=== PATIENT | male | born 1960 | race Hispanic/Latino ===

== ENCOUNTER 2018-05-12 09:45 | Inpatient (IN) | payer SELFPAY ==
[2018-05-12] MEDS ORDERED: LEVALBUTEROL 1.25 MG/3 ML NEB ONE (10:26)
[2018-05-12 10:38] LABS: Absolute Lymphocytes (CBC) 1.1 K/uL (0.7-4.9); Absolute Monocytes 0.3 K/uL (0.1-1.3); Absolute Neutrophil 6.1 K/uL (1.8-8.0); Basophils % 0.5 % (0-1.3); Eosinophils % 0.8 % (0-4.4); Hematocrit 42.6 % (39.6-49.0); Lymphocytes % 14.5 % (15.3-44.8); MPV 10.2 fL (7.6-11.3); Monocytes % 3.9 % (3.3-12.3); RBC Red Blood Cell Count 4.73 M/uL (4.33-5.43)
[2018-05-12 10:41] LABS: Protime INR 1.08
[2018-05-12] MEDS ORDERED: NA CHLORIDE 0.9% 1,000 ML ONE (11:02)
[2018-05-12] MEDS ORDERED: ONDANSETRON 4 MG/2 ML VIAL ONE (11:02)
[2018-05-12 11:04] LABS: Albumin 3.5 g/dL (3.4-5.0); Bilirubin Direct 0.1 mg/dL (0-0.2); Bilirubin Total 0.5 mg/dL (0.2-1.0); Magnesium 2.3 mg/dL (1.8-2.4); Potassium 5.3 mmol/L (3.5-5.1); Protein, Total 7.8 g/dL (6.4-8.2); Troponin (Emerg Dept Use Only) 0.3 ng/mL (0.0-0.045)
[2018-05-12] MEDS ORDERED: ASPIRIN 81 MG CHEWABLE TABLET ONE (12:08)
[2018-05-12] MEDS ORDERED: ENOXAPARIN 100 MG/ML SYR SQ ONE (12:09)
--- NOTE | 2018-05-12 12:17 | ER ---
Nurse's Notes [facility] Name: Jin Piña Age: 58 yrs Sex: Male : 1960 Arrival Date: 05/12/2018 Time: 09:46 Bed 7 Private MD: Diagnosis: Acute bronchitis;Acute kidney failure Presentation: 05/12 09:49 Presenting complaint: Patient states: cough and congestion x 2-3 days. No fever. Today ss patient c/o chest pain that began at 0700 today. Transition of care: patient was not received from another setting of care. Onset of symptoms was May 10, 2018. Risk Assessment: Do you want to hurt yourself or someone else? Patient reports no desire to harm self or others. Initial Sepsis Screen: Does the patient meet any 2 criteria? RR > 20 per min. HR > 90 bpm. Does the patient have a suspected source of infection? Yes: Productive cough/pneumonia. Care prior to arrival: None. 09:49 Method Of Arrival: Ambulatory ss 09:49 Acuity: SHERMAN 2 ss Historical: - Allergies: 09:53 No Known Allergies; ss - PMHx: 09:53 Hypertension; Diabetes - NIDDM; High Cholesterol; ss - PSHx: 09:53 None; ss - Immunization history:: Adult Immunizations up to date. - Social history:: Smoking status: Patient/guardian denies using tobacco. - Ebola Screening: : Patient denies exposure to infectious person Patient denies travel to an Ebola-affected area in the 21 days before illness onset. Screenin:30 Abuse screen: Denies threats or abuse. Denies injuries from another. Nutritional aj1 screening: No deficits noted. Tuberculosis screening: No symptoms or risk factors identified. 14:24 Fall Risk No fall in past 12 months (0 pts). No secondary diagnosis (0 pts). IV access aj1 (20 points). Ambulatory Aid- None/Bed Rest/Nurse Assist (0 pts). Gait- Normal/Bed Rest/Wheelchair (0 pts) Mental Status- Oriented to own ability (0 pts). Total Powell Fall Scale indicates No Risk (0-24 pts). Assessment: 10:30 General: Appears uncomfortable, Behavior is cooperative, anxious. Pain: Complains of aj1 pain in anterior aspect of right upper chest Pain does not radiate. Pain currently is 7 out of 10 on a pain scale. Quality of pain is described as sharp, Pain began this morning Aggravated by deep breathing. Neuro: Level of Consciousness is awake, alert, obeys commands. Cardiovascular: Reports chest pain, shortness of breath, Heart tones S1 S2 present Rhythm is sinus tachycardia. Respiratory: Reports shortness of breath cough that is productive, Airway is patent Respiratory effort is even, labored, Respiratory pattern is regular, symmetrical, tachypnea Breath sounds with rhonchi in left posterior upper lobe, right posterior upper lobe, left posterior lower lobe, right posterior middle lobe and right posterior lower lobe. GI: No signs and/or symptoms were reported involving the gastrointestinal system. : No signs and/or symptoms were reported regarding the genitourinary system. EENT: No signs and/or symptoms were reported regarding the EENT system. Derm: No signs and/or symptoms reported regarding the dermatologic system. Skin is pink, warm \T\ dry. normal. Musculoskeletal: No signs and/or symptoms reported regarding the musculoskeletal system. Circulation, motion, and sensation intact. 11:14 Reassessment: Patient appears in no apparent distress at this time. No changes from aj1 previously documented assessment. Patient and/or family updated on plan of care and expected duration. Pain level reassessed. Patient is alert, oriented x 3, equal unlabored respirations, skin warm/dry/pink. 11:24 Reassessment: critical lab- DD [id number], provider notified. em 12:15 Reassessment: Patient and/or family updated on plan of care and expected duration. Pain aj1 level reassessed. General: Appears in no apparent distress. uncomfortable, Behavior is calm, cooperative, appropriate for age. Neuro: Level of Consciousness is awake, alert, obeys commands. Cardiovascular: Heart tones S1 S2 present Patient's skin is warm and dry. Rhythm is sinus rhythm. Respiratory: Airway is patent Respiratory effort is even, unlabored, Respiratory pattern is regular, symmetrical. GI: No signs and/or symptoms were reported involving the gastrointestinal system. Derm: No signs and/or symptoms reported regarding the dermatologic system. Skin is pink, warm \T\ dry. normal. Musculoskeletal: No signs and/or symptoms reported regarding the musculoskeletal system. Circulation, motion, and sensation intact. 13:15 Reassessment: Patient appears in no apparent distress at this time. No changes from aj1 previously documented assessment. Patient and/or family updated on plan of care and expected duration. Pain level reassessed. Patient is alert, oriented x 3, equal unlabored respirations, skin warm/dry/pink. 14:22 Reassessment: Patient appears in no apparent distress at this time. No changes from aj1 previously documented assessment. Patient and/or family updated on plan of care and expected duration. Pain level reassessed. Patient is alert, oriented x 3, equal unlabored respirations, skin warm/dry/pink. 15:21 Reassessment: Patient and/or family updated on plan of care and expected duration. Pain aj1 level reassessed. General: Appears in no apparent distress. comfortable, Behavior is calm, cooperative, appropriate for age. Neuro: Level of Consciousness is awake, alert, obeys commands. Cardiovascular: Patient's skin is warm and dry. Rhythm is sinus tachycardia. Respiratory: Airway is patent Respiratory effort is even, unlabored, Respiratory pattern is regular, symmetrical. Derm: Skin is pink, warm \T\ dry. normal. Musculoskeletal: Circulation, motion, and sensation intact. Vital Signs: 09:49 BP 142 / 100; Pulse 117; Resp 30; Temp 98.6(O); Pulse Ox 92% on R/A; Pain 7/10; ss 09:53 Height 5 ft. 5 in. (165.10 cm); Pain 7/10; ss 11:14 BP 115 / 79; Pulse 99; Resp 13; Pulse Ox 99% on 2 lpm NC; aj1 11:49 Weight 90.72 kg (R); aj1 12:45 BP 103 / 74; Pulse 95; Resp 18; Pulse Ox 98% ; aj1 13:45 BP 118 / 89; Pulse 98; Resp 18; Pulse Ox 95% on 2 lpm NC; aj1 14:24 BP 129 / 85; Pulse 95; Resp 20; Pulse Ox 96% on R/A; aj1 15:22 BP 124 / 84; Pulse 97; Resp 24; Pulse Ox 97% on R/A; aj1 11:49 Body Mass Index 33.28 (90.72 kg, 165.10 cm) aj1 ED Course: 09:46 Patient arrived in ED. as 09:53 Triage completed. ss 09:53 Arm band placed on right wrist. ss 10:00 EKG done, by ED staff, reviewed by Romero Fermin MD. em1 10:05 Kit Keane PA is PHCP. jmm 10:05 Romero Fermin MD is Attending Physician. jmm 10:30 Patient has correct armband on for positive identification. panel monitor on. Pulse aj1 ox on. NIBP on. 10:30 No provider procedures requiring assistance completed. Inserted saline lock: 18 gauge aj1 in right antecubital area, using aseptic technique. Blood collected. Patient maintains SpO2 saturation greater than 95% on room air. 10:33 Christina Frankel, KENDRICK is Primary Nurse. aj1 12:14 Breezy Anaya MD is Hospitalizing Provider. jmm 12:32 Chest Single View XRAY In Process Unspecified. EDMS 14:07 EKG done, by ED staff, reviewed by Kit MARTINEZ. em1 15:23 Patient admitted, IV remains in place. aj1 15:48 Report given to KENDRICK Hendrix on 4th floor. aj1 Administered Medications: 10:34 Drug: Xopenex (3) 1.25 mg Route: Inhalation; aj1 12:19 Follow up: Response: No adverse reaction aj1 10:58 Drug: NS 0.9% 1000 ml Route: IV; Rate: 1 bolus; Site: right antecubital; aj1 12:19 Follow up: IV Status: Completed infusion; IV Intake: 1000ml aj1 10:58 Drug: Zofran 4 mg Route: IVP; Site: right antecubital; aj1 12:19 Follow up: Response: No adverse reaction aj1 12:18 Drug: Aspirin Chewable Tablet 324 mg Route: PO; aj1 13:57 Follow up: Response: No adverse reaction aj1 12:18 Drug: Lovenox 1 mg/kg Route: Sub-Q; Site: left lower abdomen; aj1 13:57 Follow up: Response: No adverse reaction aj1 15:19 Drug: Kayexalate 45 grams Route: PO; aj1 16:49 Follow up: Response: No adverse reaction aj1 Intake: 12:19 IV: 1000ml; Total: 1000ml. aj1 Outcome: 12:15 Decision to Hospitalize by Provider. jmm 16:43 Admitted to Tele accompanied by tech, via wheelchair, with oxygen, with chart. aj1 16:43 Condition: stable 16:43 Discharge instructions given to family, Instructed on the need for admit, Demonstrated understanding of instructions. 16:45 Patient left the ED. aj1 Signatures: Dispatcher [employer] Christina Trujillo RN RN aj1 Kit Keane PA PA jmm Munoz, Edgar, CRAPS MANAGER CRAPS MANAGER daniel Ordonez, Uvaldo Conroy em1 Abbey Jamil RN RN ss Corrections: (The following items were deleted from the chart) 10:02 09:49 Initial Sepsis Screen: Does the patient meet any 2 criteria? No. Patient's ss initial sepsis screen is negative. Does the patient have a suspected source of infection? No. Patient's initial sepsis screen is negative. ss 10:02 09:49 Acuity: SHERMAN 3 ss ss
--- NOTE | 2018-05-12 12:17 | EDPHYS ---
Physician Documentation [facility] Name: Jin Piña Age: 58 yrs Sex: Male : 1960 Arrival Date: 05/12/2018 Time: 09:46 Bed 7 Private MD: ED Physician Romero Fermin HPI: 05/12 10:23 This 58 yrs old Male presents to ER via Ambulatory with complaints of Chest Pain, jmm Shortness of breath. 10:23 The patient or guardian reports cough. Onset: The symptoms/episode began/occurred jmm gradually, 1 month(s) ago. This is a 58 year old male with a history of DM, HTN, HLP that presents to the ED with cough, shortness of breath and intermittent right sided chest pain for approx 1 month. Patient states symptoms had decreased but after drinking alcohol last night the patient awoke this morning short of breath, with a productive cough, and worsening right sided chest pain. . Historical: - Allergies: 09:53 No Known Allergies; ss - PMHx: 09:53 Hypertension; Diabetes - NIDDM; High Cholesterol; ss - PSHx: 09:53 None; ss - Immunization history:: Adult Immunizations up to date. - Social history:: Smoking status: Patient/guardian denies using tobacco. - Ebola Screening: : Patient denies exposure to infectious person Patient denies travel to an Ebola-affected area in the 21 days before illness onset. ROS: 10:23 Constitutional: Positive for body aches. jmm 10:23 Cardiovascular: Positive for chest pain, of the anterior aspect of right upper chest. 10:23 Respiratory: Positive for cough, shortness of breath. 10:23 Abdomen/GI: Positive for nausea and vomiting. 10:23 All other systems are negative. Exam: 10:23 Head/Face: atraumatic. Eyes: EOMI, no conjunctival erythema appreciated ENT: Moist jmm Mucus Membranes Neck: Trachea midline, Supple Chest/axilla: Normal chest wall appearance and motion. Cardiovascular: Regular rate and rhythm. No edema appreciated 10:23 Abdomen/GI: Non distended, soft Skin: General appearance color normal MS/ Extremity: Moves all extremities, no obvious deformities appreciated, no edema noted to the lower extremities Neuro: Awake and alert, normal gait Psych: Behavior is normal, Mood is normal, Patient is cooperative and pleasant 10:23 Constitutional: The patient appears in no acute distress, alert, awake. 10:23 Respiratory: mild respiratory distress is noted, Respirations: normal, Breath sounds: wheezing: that is moderate, is heard diffusely. Vital Signs: 09:49 BP 142 / 100; Pulse 117; Resp 30; Temp 98.6(O); Pulse Ox 92% on R/A; Pain 7/10; ss 09:53 Height 5 ft. 5 in. (165.10 cm); Pain 7/10; ss 11:14 BP 115 / 79; Pulse 99; Resp 13; Pulse Ox 99% on 2 lpm NC; aj1 11:49 Weight 90.72 kg (R); aj1 12:45 BP 103 / 74; Pulse 95; Resp 18; Pulse Ox 98% ; aj1 13:45 BP 118 / 89; Pulse 98; Resp 18; Pulse Ox 95% on 2 lpm NC; aj1 14:24 BP 129 / 85; Pulse 95; Resp 20; Pulse Ox 96% on R/A; aj1 15:22 BP 124 / 84; Pulse 97; Resp 24; Pulse Ox 97% on R/A; aj1 11:49 Body Mass Index 33.28 (90.72 kg, 165.10 cm) aj1 MDM: 10:07 Patient medically screened. [facility] 12:13 Data reviewed: vital signs, nurses notes. [facility] 12:14 Counseling: I had a detailed discussion with the patient and/or guardian regarding: the [facility] historical points, exam findings, and any diagnostic results supporting the discharge/admit diagnosis, lab results, radiology results, the need for further work-up and treatment in the hospital. ED course: I discussed the patient with Dr. Anaya whom accepted the patient. . 14:26 ED course: I discussed the patient with Dr. An whom will consult on admission. . [facility] 05/12 10:16 Order name: Basic Metabolic Panel; Complete Time: 11:33 [facility] 05/12 10:16 Order name: CBC with Diff; Complete Time: 10:42 [facility] 05/12 10:16 Order name: LFT's; Complete Time: 11:33 [facility] 05/12 10:16 Order name: Magnesium; Complete Time: 11:33 [facility] 05/12 10:16 Order name: NT PRO-BNP; Complete Time: 11:33 [facility] 05/12 10:16 Order name: PT-INR; Complete Time: 11:01 [facility] 05/12 10:16 Order name: Troponin (emerg Dept Use Only); Complete Time: 11:33 [facility] 05/12 10:17 Order name: Lactate; Complete Time: 11:06 [facility] 05/12 10:17 Order name: Procalcitonin; Complete Time: 11:33 [facility] 05/12 10:17 Order name: Blood Culture Adult (2) [facility] 05/12 11:08 Order name: D-Dimer; Complete Time: 11:33 [facility] 05/12 11:45 Order name: Chest Single View XRAY; Complete Time: 14:17 [facility] 05/12 11:58 Order name: BMP; Complete Time: 13:35 [facility] 05/12 10:02 Order name: EKG; Complete Time: 10:03 05/12 10:02 Order name: EKG - Nurse/Tech; Complete Time: 10:02 05/12 10:16 Order name: Cardiac monitoring; Complete Time: 10:35 [facility] 05/12 10:16 Order name: IV Saline Lock; Complete Time: 10:35 [facility] 05/12 10:16 Order name: Labs collected and sent; Complete Time: 10:35 [facility] 05/12 10:16 Order name: O2 Per Protocol; Complete Time: 10:35 [facility] 05/12 10:16 Order name: O2 Sat Monitoring; Complete Time: 10:35 [facility] 05/12 13:11 Order name: EKG - Nurse/Tech; Complete Time: 15:19 jmm Administered Medications: 10:34 Drug: Xopenex (3) 1.25 mg Route: Inhalation; aj1 12:19 Follow up: Response: No adverse reaction aj1 10:58 Drug: NS 0.9% 1000 ml Route: IV; Rate: 1 bolus; Site: right antecubital; aj1 12:19 Follow up: IV Status: Completed infusion; IV Intake: 1000ml aj1 10:58 Drug: Zofran 4 mg Route: IVP; Site: right antecubital; aj1 12:19 Follow up: Response: No adverse reaction aj1 12:18 Drug: Aspirin Chewable Tablet 324 mg Route: PO; aj1 13:57 Follow up: Response: No adverse reaction aj1 12:18 Drug: Lovenox 1 mg/kg Route: Sub-Q; Site: left lower abdomen; aj1 13:57 Follow up: Response: No adverse reaction aj1 15:19 Drug: Kayexalate 45 grams Route: PO; aj1 16:49 Follow up: Response: No adverse reaction aj1 Disposition: 17:32 Co-signature as Attending Physician, Romero Fermin MD. Disposition: 05/12/18 12:15 Hospitalization ordered by Breezy Anaya for Observation. Preliminary diagnosis are Acute bronchitis, Acute kidney failure. - Bed requested for Telemetry/MedSurg (observation). - Status is Observation. aj1 - Condition is Stable. - Problem is new. - Symptoms have improved. UTI on Admission? No Signatures: Dispatcher [employer] [facility] Christina Frankel RN RN aj1 Kit Keane PA PA [facility] Abbey Jamil RN RN Hazel Johnson RN RN df Starr, Gregory, MD MD Corrections: (The following items were deleted from the chart) 11:38 11:33 Chest For PE Angio+CT.RAD.BRZ ordered. [facility] 13:48 12:15 Hospitalization Ordered by Breezy Anaya MD for Observation. Preliminary diagnosis df is Acute bronchitis; Acute kidney failure. Bed requested for Telemetry/MedSurg (observation). Status is Observation. Condition is Stable. Problem is new. Symptoms have improved. UTI on Admission? No. [facility] 16:45 13:48 05/12/2018 12:15 Hospitalization Ordered by Breezy Anaya MD for Observation. aj1 Preliminary diagnosis is Acute bronchitis; Acute kidney failure. Bed requested for Telemetry/MedSurg (observation). Status is Observation. Condition is Stable. Problem is new. Symptoms have improved. UTI on Admission? No. df
[2018-05-12 13:11] LABS: Potassium 5.7 mmol/L (3.5-5.1)
[2018-05-12] MEDS ORDERED: SOD POLYSTYREN SUL 15 GM/60 ML UCUP PO ONE ×2 (14:00→20:08)
--- NOTE | 2018-05-12 14:13 | EKG ---
Test Date: 2018-05-12 Test Time: 09:58:23 Airplane Patrol Pilot: IZZY MEASUREMENT RESULTS: Intervals: Rate: 110 SC: 140 QRSD: 112 QT: 354 QTc: 479 [place]: P: 74 SC: 140 QRS: -79 T: 162 INTERPRETIVE STATEMENTS: Sinus tachycardia Possible Left atrial enlargement Left axis deviation Right bundle branch block Abnormal ECG No previous ECG available for comparison Electronically Signed On 05-12-18 14:12:27 QUALITY REVIEW SPECIALIST by Lio Giron
--- NOTE | 2018-05-12 14:13 | RAD REPORT ---
EXAM DESCRIPTION: RAD - Chest Single View - 05/12/2018 12:32 pm CLINICAL HISTORY: Cough and congestion COMPARISON: None. TECHNIQUE: AP portable chest image was obtained 1203 hours . FINDINGS: Lung volumes are normal. No focal consolidation or mass lesion. Interstitial markings are diffusely prominent throughout the lung whitman. Mild cardiomegaly is present with vascular engorgemen t. Trachea is midline. No measurable pleural effusion and no pneumothorax. No acute bony abnormality seen. No acute aortic findings suspected. IMPRESSION: Diffusely prominent interstitial markings with baseline for the patient unknown. Mild cardiac enlargement and vascular engorgement. Patient likely has some significant degree of underlying fibrotic lung change. CHF, volume overload o r pulmonary edema from infiltrate are all possible.
[2018-05-12] MEDS ORDERED: IPRATROPIUM BROM 0.5MG/2.5ML NEB PRN (16:59)
[2018-05-12] MEDS ORDERED: MORPHINE 4 MG/ML SYR IV PRN (16:59)
[2018-05-12] MEDS: INSULIN -REGULAR HUMAN 50 UNIT/0.5 ML ML SQ SCH ×2 (16:59→21:04)
[2018-05-12] MEDS ORDERED: ACETAMINOPHEN 500 MG TAB PO PRN (16:59)
[2018-05-12] MEDS ORDERED: ALBUTEROL 2.5 MG/3 ML NEB SOL NEB PRN (16:59)
[2018-05-12] MEDS ORDERED: NITROGLYCERIN 0.4 MG/TAB SL PRN (16:59)
[2018-05-12] MEDS ORDERED: INSULIN -REGULAR HUMAN 50 UNIT/0.5 ML ML IV ONE (18:15)
[2018-05-12] MEDS ORDERED: ALBUTEROL 2.5 MG/3 ML NEB SOL NEB ONE (19:00)
[2018-05-12] MEDS ORDERED: D50W 25 GM/50 ML SYRINGE IV ONE (19:00)
[2018-05-12] MEDS ORDERED: NA CHLORIDE 0.9% 1,000 ML IV SCH (19:00)
[2018-05-12 19:29] LABS: Thyroid Stimulating Hormone 2.36 uIU/mL (0.360-3.740); Uric Acid 6.9 mg/dL (3.5-7.2)
[2018-05-12] MEDS ORDERED: FUROSEMIDE 40 MG/4 ML VIAL IV ONE (20:20)
[2018-05-12 20:38] VITALS: BMI 33.3
[2018-05-12] MEDS: ATORVASTATIN 40 MG TAB PO SCH (21:05)
[2018-05-12] MEDS: METOPROLOL TAR 25 MG TAB PO SCH (21:06)
--- NOTE | 2018-05-12 22:41 | EKG ---
Test Date: 2018-05-12 Test Time: 14:00:39 Barrel Waterer: IZZY MEASUREMENT RESULTS: Intervals: Rate: 97 NH: 158 QRSD: 114 QT: 388 QTc: 492 [place]: P: 5 NH: 158 QRS: -57 T: 70 INTERPRETIVE STATEMENTS: Normal sinus rhythm Left axis deviation Right bundle branch block Abnormal ECG Compared to ECG 05/12/2018 09:58:23 Sinus tachycardia no longer present Electronically Signed On 05-12-18 22:40:47 CARDIAC CATH TECHNOLOGIST by Lio Giron
[2018-05-13] MEDS: ENOXAPARIN 100 MG/ML SYR SQ SCH ×3 (00:57→23:31)
--- NOTE | 2018-05-13 02:14 | HP ---
Date of Admission: 05/12/2018 Chief Complaint: Chest pain. Consultants: Dr. Giron with Cardiology. History Of Present Illness: The patient is a 58-year-old male with past medical history of hypertens ion, hyperlipidemia, diabetes mellitus [id number], who was in his usual state of health un til day prior to admission when the patient went to a restaurant, had several glasses of whiskey, he says about 5 and the next morning woke up with chest pain. The patient also reported some associated shortness of breath and nausea and vomiting x1. Denies any diaphoresis or palpitations. The patien t denies being a daily drinker. States that his pain has improved since being in the ER. The pain w as retrosternal, nonradiating, sharp. The patient's symptoms were constant, mild, progressive. The patient came into the ER for further evaluation. Upon arrival, his workup revealed a troponin of 0.3 . BNP was 6500. His kidney function was elevated at 2.48. Potassium was high at 5.3. White count was normal. Chest x-ray was not clear. It showed diffusely prominent markings with baseline unknown, mild cardiac enlargement, vascular engorgement, some significant degree of underlying fibrotic lung change. CHF, volume overload or pulmonary edema from the infiltrates are all possible. The patient' s EKGs did not show any acute ST elevation. The patient was hypoxic and was started on 2 L nasal can nula. His septic workup was negative. Procalcitonin and lactate were normal. The patient was then referred for admission. When seen in the ER the patient was awake, alert, oriented x3, in some mild distress. Past Medical History: Hypertension, hyperlipidemia, diabetes mellitus type 2, [id number]. Past Surgical History: None. Allergies: NO KNOWN DRUG ALLERGIES. Medications: Lisinopril/HCTZ, glipizide 10 mg, metformin 850 mg, pravastatin unknown dose, amlodipin e 10 mg daily. Social History: The patient denies smoking. Does report drinking alcohol occasionally. Does drink heavily when he goes to a restaurant or a bar. The patient does work at a plant. Independent in his activities of daily living. Family History: Mother has diabetes. Review of Systems: An 11-point system review negative except as per HPI. Physical Examination: Vital Signs: Temperature 98.6, blood pressure 142/100, pulse 117, respirations 30, O2 of 92% on room air. General: Awake, alert, oriented x3. Some mild distress. Ill-appearing male, obese, BMI 33. HEENT: Normocephalic, atraumatic. PERRLA. EOMI. Dry mucous membranes. Oropharynx is clear. Conjunctiv ae anicteric. Poor dentition. Neck: Supple. No JVD. Trachea midline. CV: S1, S2. Regular rate and rhythm. Peripheral pulses present bilaterally. Respiratory: Moving air well at the apices. Otherwise, the patient does have diffuse crackles and t he patient is tachypneic. No use of accessory muscles. Gastrointestinal: Abdomen is soft, nontender, nondistended. Positive bowel sounds. Extremities: No clubbing, cyanosis, or edema. No calf tenderness. Neuro: Cranial nerves 2 through 12 intact grossly. No focal neurological deficit. Speech is normal . Strength is 5/5 bilateral upper and lower extremities. Sensation intact to light touch Skin: No rashes. Normal skin turgor. Laboratory Data: Sodium 137, potassium 5.3, recheck is 5.7, chloride 106, CO2 of 24, BUN 37, creatin ine 2.48, glucose 271, lactate 1.5, calcium 8.7, magnesium 2.3. Troponin 0.3. BNP 6500, albumin 3.5 . Procalcitonin less than 0.05. Lactate 1.5. INR 1.08. D-dimer 817. WBC 7.5, H and H 14.2 and 42 .6, platelets 201, neutrophils 80%. EKG shows sinus tachycardia, rate 110, left atrial enlargement. Left axis deviation, right bundle-branch block. Chest x-ray shows diffusely prominent interstitial markings with baseline for the patient unknown. Mild cardiac enlargement and vascular engorgement. The patient likely has some significant degree of underlying fibrotic lung change. CHF, volume overl oad or pulmonary edema from infiltrate are all possible. Assessment And Plan: A 58-year-old male with: 1.Acute kidney injury, likely prerenal azotemia. We will start on IV fluids with gentle hydration d ue to congestive heart failure and volume overload on x-ray. 2.Chest pain, rule out acute coronary syndrome. The patient does have elevated troponin level. No changes on EKG concerning for ST-elevation. Cardiology has been consulted. The patient received 1 mg /kg of Lovenox. We will continue every 24 hours. The patient's chest pain has improved. We will co ntinue serial cardiac enzymes and EKG. Follow on chest pain guidelines with beta-romario, hold AISSATOU i nhibitor due to acute kidney injury, statin and aspirin. 3.Hyperkalemia. We will give Kayexalate and monitor potassium level, likely due to kidney injury. Nephrology has been consulted by ER. 4.Volume overload. Likely has alcoholic cardiomyopathy and heart failure. BNP is elevated at 6500. Chest x-ray shows volume overload. The patient will need echocardiogram. 5.Essential hypertension, not well controlled. We will resume home medications as appropriate. 6.Mixed hyperlipidemia. We will check lipid panel. Continue statin. 7.Diabetes mellitus type 2 ceu-iujydtb-skfarrrsh with hyperglycemia, uncontrolled. We will check he moglobin A1c, start on sliding scale insulin. Monitor blood glucose levels. 8.Obesity, BMI of 33. 9.Gastrointestinal and deep venous thrombosis prophylaxis with PPI and Lovenox renally dosed. Plan: Admit the patient to Med-Surg, [facility] as observation. /RANJEET Voice ID: [id number]
[2018-05-13 06:45] LABS: Absolute Lymphocytes (CBC) 1.1 K/uL (0.7-4.9); Absolute Monocytes 0.5 K/uL (0.1-1.3); Absolute Neutrophil 5.9 K/uL (1.8-8.0); Basophils % 0.2 % (0-1.3); Eosinophils % 0.3 % (0-4.4); Lymphocytes % 14.1 % (15.3-44.8); MPV 10.1 fL (7.6-11.3); Monocytes % 6.3 % (3.3-12.3); RBC Red Blood Cell Count 4.23 M/uL (4.33-5.43)
[2018-05-13 07:13] LABS: Potassium 4.2 mmol/L (3.5-5.1)
[2018-05-13] MEDS ORDERED: PNEUMOCOCCAL VACCINE 0.5 ML IMVAC ONE (08:00)
[2018-05-13] MEDS: ASPIRIN EC 81 MG TAB PO SCH (08:32)
[2018-05-13] MEDS: INSULIN -REGULAR HUMAN 50 UNIT/0.5 ML ML SQ SCH ×4 (08:32→21:36)
[2018-05-13] MEDS: METOPROLOL TAR 25 MG TAB PO SCH ×2 (08:32→21:35)
[2018-05-13] MEDS ORDERED: ENOXAPARIN 40 MG/0.4 ML SQ SCH ×2 (09:00)
[2018-05-13] MEDS ORDERED: RISPERIDONE 0.25 MG TABLET PO ONE (10:20)
--- NOTE | 2018-05-13 12:35 | RAD REPORT ---
EXAM DESCRIPTION: US - Renal Ultrasound-Complete - 05/12/2018 11:01 pm CLINICAL HISTORY: [place] COMPARISON: No comparisons FINDINGS: Both kidneys are normal in size, shape and echotexture. The right kidney measures 9.8 x 4.8 x 4.6 cm. No hydronephrosis, focal mass or perinephric fluid. The left kidney measures 9.5 x 5.5 x 4.4 cm. No hydronephrosis, focal mass or perinephric fluid. The urinary bladder is incompletely distended without gross abnormality seen. IMPRESSION: Unremarkable renal sonogram.
--- NOTE | 2018-05-13 16:29 | EKG ---
Test Date: 2018-05-12 Test Time: 19:53:40 Trail Construction Worker: RT MEASUREMENT RESULTS: Intervals: Rate: 141 [place]: QRSD: 112 QT: 358 QTc: 548 [place]: P: NJ: QRS: -21 T: 23 INTERPRETIVE STATEMENTS: Atrial fibrillation with rapid ventricular response Right bundle branch block Abnormal ECG Compared to ECG 05/12/2018 14:00:39 Sinus rhythm no longer present Left-axis deviation no longer present Electronically Signed On 05-13-18 16:28:50 STILL OPERATOR BATCH OR CONTINUOUS by Lio Giron
--- NOTE | 2018-05-13 16:53 | CON ---
CARDIOLOGY CONSULTATION History Of Present Illness: Mr. Keith Piña was having chest pain. It seems to be described as something with both typical and atypical features, hard to really pin down exactly what he means. Apparently, he has had the symptoms in the past. There is no previous history of testing done on his heart or stents or previous heart attacks or strokes. Medications: As an outpatient, he takes amlodipine, lisinopril, hydrochlorothiazide, glipizide, and metformin. Social History: He uses no tobacco. Allergies: HE HAS NO ALLERGIES. Physical Examination: General: He is 5 feet 5 inches, 208 pounds, obese, alert, oriented, not in distress. Lungs: Clear. Cardiac: Normal. Abdomen: Soft. Extremities: Normal. Laboratory Data: His troponins are all abnormal, but he has had 3 separate troponins drawn over about a 24-hour period. They are all virtually the same to typical rise and fall one sees with an acute coronary syndrome. His N- terminal ProBNP is elevated over 6000. His electrocardiogram shows right bundle -branch block, left axis, otherwise it is normal. His initial ECG showed afib with RVR., but he is in sinus rhythm now. His creatinine is almost 2.5. Impression And Plan: My impression is that Mr. Keith Piña has heart symptoms. I believe it is mostly from atrial fibrillation, but I think an echo and nuclear pharmacologic stress test would help us decide what kind of course to take. We probably want to pursue strictly medical therapy for him unless his nuclear stress test shows a large perfusion defect. ALTA/RANJEET Voice ID: [id number] Report ID: [id number] LAURIE
[2018-05-13 19:08] LABS: Urine Appearance CLEAR; Urine Bilirubin NEGATIVE (NEG); Urine Blood NEGATIVE (NEG); Urine Color YELLOW; Urine Glucose 2+ (NEG); Urine Protein 2+ (NEG)
[2018-05-13 19:12] LABS: Urine Protein/Creatinine Ratio 1.34 ratio (<0.15)
[2018-05-13 19:25] LABS: Urine Bacteria NONE SEEN /HPF (NONE SEEN); Urine RBC <5 /HPF (NONE SEEN)
[2018-05-13 19:26] LABS: Urine Culture Reflex Order NOT NEEDED
--- NOTE | 2018-05-13 21:00 | PN ---
Date of Progress Note: 05/13/2018 Subjective: The patient is seen and examined. Chart reviewed and case discussed with Dr. Giron, Ca rdiology. The patient denies any further chest pain. He states his symptoms have improved. Case is discussed with Dr. Fajardo. The patient overall does not have any significant complaints. Medications: List reviewed. Physical Examination: Vital Signs: Temperature 97.4, heart rate 86, blood pressure 120/76, respirations 16, O2 96% on room air. General: Awake, alert, oriented x3. No acute distress. Obese male. CV: S1, S2. Regular rate and rhythm. Peripheral pulses present. Respiratory: Moving air well bilaterally. No wheezing. Gastrointestinal: Abdomen is soft, nontender, nondistended. Positive bowel sounds. Extremities: No clubbing, cyanosis, or edema. Neurologic: Nonfocal. Laboratory Data: Sodium 142, potassium 4.2, chloride 108, CO2 25, BUN 34, creatinine 2.37, glucose 2 08, calcium 8.3. Troponin 0.34, 0.38. Triglycerides 195, cholesterol 135, LDL 62. HDL 34, PTH 109, TSH 2.36. WBC 7.5, H and H 13.1, 38, platelets 180. Blood cultures, no growth to date. EKG shows normal sinus rhythm, left axis deviation, right bundle-branch block, rate of 97. Assessment And Plan: A 58-year-old male with: 1.Axk-VS-hmlxtoyol myocardial infarction. We will continue chest pain guidelines, therapeutic Loven ox. Appreciate Dr. Giron' input. Stress test scheduled for a.m. 2.Acute kidney injury. The patient did not respond to IV fluids. Case discussed with Dr. Fajardo. The patient does report that he was referred to flight operations dispatch clerk by PCP. The patient likely has chroni city to this kidney dysfunction, stage 3. We will continue to monitor. Avoid nephrotoxins. 3.Hyperkalemia, corrected secondary to kidney injury. 4.Volume overload. Follow up on echocardiogram. 5.Essential hypertension, poorly controlled. We will adjust home medications. 6.Mixed hyperlipidemia. Continue statin. 7.Diabetes mellitus type 2 hcx-kefpbnh-wfnabzgsk with hyperglycemia. We will resume glipizide, hold metformin. We will check hemoglobin A1c. 8.Obesity, BMI 33. 9.Gastrointestinal and deep venous thrombosis prophylaxis with PPI and Lovenox. PLAN: Cardiac stress test in a.m. /RANJEET Voice ID: [id number] Report ID: [id number]
--- NOTE | 2018-05-13 21:00 | PN ---
Date of Progress Note: 05/13/2018 Subjective: The patient complaining over the night from shortness of breath. IV fluid has been disc ontinued. Physical Examination: Vital Signs: Blood pressure 119/84, pulse of 65. Chest: Crackles bilateral. Heart: S1, S2, regular. Abdomen: Soft, nontender. Extremities: Plus edema. Laboratory Data: WBC 7.5, H and H 13.1/38, platelets 180. Sodium 142, potassium 4.2, bicarb 25, BUN 34, creatinine 2.3, GFR 28, calcium 8.3. PTH of 109. Protein creatinine was not collected yet. est x-ray has cardiomegaly with congestion. Renal ultrasound, normal size kidney 9.8 x 9.5. Assessment And Plan: 1.Acute kidney injury secondary to cardiorenal, over volume with hyperkalemia. I can go ahead and d iscontinue IV fluid, place the patient on Lasix, and we will monitor the patient. 2.We will follow up protein creatinine. 3.Hypertension, controlled, currently on the lower side. We will utilize the blood pressure to esta blish better volume control. We will start the patient on Lasix. We will follow up with Cardiology. 4.Congestive heart failure as by Cardiology. We will start the patient on diuresis. 5.Hyperkalemia secondary to renal failure, AISSATOU inhibitor. Keep holding AISSATOU inhibitor. We will diur slick the patient. We will follow up. 6.Acidosis, resolved. SERGEY/RANJEET Voice ID: [id number] Report ID: [id number]
[2018-05-13] MEDS: ATORVASTATIN 40 MG TAB PO SCH (21:35)
[2018-05-14 04:18] LABS: Potassium 3.8 mmol/L (3.5-5.1)
[2018-05-14] MEDS: INSULIN -REGULAR HUMAN 50 UNIT/0.5 ML ML SQ SCH ×4 (07:30→21:42)
[2018-05-14] MEDS ORDERED: REGADENOSON 0.4 MG/5 ML SYR IV ONE (07:36)
[2018-05-14] MEDS ORDERED: HOME MED 1 EA UNK (Glipizide [Glucotrol] 10 MG) PO SCH (08:00)
[2018-05-14] MEDS: FUROSEMIDE 40 MG/4 ML VIAL IV SCH (08:33)
[2018-05-14] MEDS: glipiZIDE 5 MG TAB PO SCH (08:34)
[2018-05-14] MEDS: ASPIRIN EC 81 MG TAB PO SCH (08:34)
[2018-05-14] MEDS: METOPROLOL TAR 25 MG TAB PO SCH ×2 (08:34→21:41)
--- NOTE | 2018-05-14 13:36 | RAD REPORT ---
EXAM DESCRIPTION: NM - Rest Stress Cardiac Imaging - 05/14/2018 1:28 pm CLINICAL HISTORY: Chest pain. COMPARISON: None. TECHNIQUE: The patient was administered approximately 10mCi of Tc 99m Sestamibi prior to resting SPE CT imaging of the heart. The patient was then administered approximately 30 mCi of Tc 99m Sestamibi f ollowing exercise or pharmacologic stress. Multiplanar SPECT images were reviewed. FINDINGS: Large area of diminished radiotracer uptake involves the inferior apical and septal left v entricular myocardium on rest and stress images. Left ventricular ejection fraction equals 20% IMPRESSION: Large fixed perfusion defect involving the inferior apical and septal left ventricular myocardium consistent with infarction. No evidence of stress-induced ischemia
[2018-05-14] MEDS: ENOXAPARIN 100 MG/ML SYR SQ SCH ×2 (14:01→22:58)
--- NOTE | 2018-05-14 14:04 | TREADPHA ---
DX: CHEST PAIN Date of Study: Ht: 5 5 Wt: 200 lb 0 oz Consulting Physician: CONNER MEDICATIONS: TYLENOL, ASPIRIN, LIPITOR, LOVENOX, NOVOLIN-R HISTORY: 58 YEAR OLD MALE WITH COMPLAINTS OF CHEST PAIN. MEDICAL HISTORY OF HYPERTENSION, DIABETES, HIGH CHOLESTEROL, NON SMOKER, OCCASIONAL DRINKER. PHYSICIAL EXAMINATION: RESTING B.P.: 119/66 RESTING H.R.: 82 RESTING EKG: SINUS. RIGHT BUNDLE BRANCH BLOCK. OCCASIONAL PREMATURE VENTRICULAR COMPLEXES. PROTOCOL: LEXISCAN EXERCISE TIME: 3:30 B.P. AT PEAK STRESS: 113/74 IMPRESSION: LEXISCAN INJECTED. CARDIOLITE INJECTED PER PROTOCOL. SEE NUCLEAR MEDICINE REPORT. NO SUPRAVENTRICULAR TACHYCARDIA. NO VENTRICULAR TACHYCARDIA. FREQUENT PREMATURE VENTRICULAR COMPLEXES THROUGHOUT PROCEDURE AND RECOVERY. PATIENT REPORTED NO CHEST PAIN OR TIGHTNESS THROUGHT PROCEDURE. NON DIAGNOSTIC EKG WITH LEXISCAN STRESS TEST.
--- NOTE | 2018-05-14 15:30 | ECHO ---
HEIGHT: 5 ft 5 in WEIGHT: 200 lb 0 oz DATE OF STUDY: 05/14/[address]: Lio Giron MD 2-DIMENSIONAL: YES M.MODE: YES DOPPLER: YES COLOR FLOW: YES TDS: NO PORTABLE: NO DEFINITY: NO BUBBLE STUDY: NO DIAGNOSIS: CHEST PAIN CARDIAC HISTORY: CATHERIZATION: NO SURGERY: NO PROSTHETIC VALVE: NO PACEMAKER: NO MEASUREMENTS (cm) DIASTOLIC (NORMALS) SYSTOLIC (NORMALS) IVSd 1.1 (0.6-1.2) LA Diam (1.9-4.0) LVEF 37% LVIDd 4.8 (3.5-5.7) LVIDs 4.0 (2.0-3.5) %FS 18% LVPWd 1.1 (0.6-1.2) Ao Diam 3.4 (2.0-3.7) 2 DIMENSIONAL ASSESSMENT: RIGHT ATRIUM: NORMAL LEFT ATRIUM: DILATED RIGHT VENTRICLE: NORMAL LEFT VENTRICLE: NORMAL TRICUSPID VALVE: NORMAL MITRAL VALVE: NORMAL PULMONIC VALVE: NORMAL AORTIC VALVE: NORMAL PERICARDIAL EFFUSION: NONE AORTIC ROOT: NORMAL LEFT VENTRICULAR WALL MOTION: GLOBAL HYPOKINESIS. DOPPLER/COLOR FLOW: MILD MITRAL REGURGITATION. COMMENTS: DEPRESSED LEFT VENTRICULAR EJECTION FRACTION. MILD MITRAL REGURGITATION. TECHNOLOGIST: RIK DUENAS
--- NOTE | 2018-05-14 20:46 | PN ---
Date of Progress Note: 05/14/2018 Subjective: The patient seen and examined. Chart reviewed and case discussed with RN. The patient denies any significant chest pain. The patient is doing well otherwise. Medications: List reviewed. Physical Examination: Vital Signs: Temperature 97.9, heart rate 88, blood pressure 121/83, respirations 20, O2 94% on room air. General: Awake, alert, oriented x3. No acute distress. Obese. CV: S1, S2. No murmurs. Regular rate and rhythm. Peripheral pulses present. Respiratory: Moving air well bilaterally. No wheezing or stridor. Gastrointestinal: Abdomen is soft, nontender, nondistended. Positive bowel sounds. Extremities: No clubbing, cyanosis or edema. Neurologic: Nonfocal. Laboratory Data: Sodium 142, potassium 3.8, chloride 108, CO2 27, BUN 34, creatinine 2.16, glucose 1 78. Hemoglobin A1c 8.6%. Calcium 8.2. WBC 7.5, H and H 13.1 and 38, neutrophils 79%. Cardiac stre ss test shows large fixed perfusion defect involving the inferior apical and septal left ventricular myocardium consistent with infarction. Assessment And Plan: A 58-year-old male with: 1.Gfj-XC-wtiysodeh myocardial infarction. We will continue chest pain guidelines and therapeutic Lo venox. Cardiac stress test is positive. We will likely anticipate heart catheterization, Dr. Giron on board. 2.Acute versus acute on chronic kidney injury. The patient likely does have chronic kidney disease stage 3, and creatinine has improved. Dr. Fajardo on board. 3.Hyperkalemia, corrected. We will continue to monitor. 4.Essential hypertension, not well controlled. 5.Mixed hyperlipidemia. Continue statin. 6.Diabetes mellitus type 2, insulin requiring with hyperglycemia. Continue glipizide. Hold metform in. Hemoglobin A1c is 8.1%, uncontrolled. Continue Accu-Cheks and sliding scale insulin. 7.Obesity, BMI 33. 8.Gastrointestinal and deep venous thrombosis prophylaxis with PPI and Lovenox. PLAN: Anticipate heart catheterization. /RANJEET Voice ID: [id number] Report ID: [id number]
[2018-05-14] MEDS: ATORVASTATIN 40 MG TAB PO SCH (21:41)
--- NOTE | 2018-05-15 02:50 | PN ---
Date of Progress Note: 05/14/2018 Chief Complaint: Acute kidney injury secondary to cardiorenal syndrome associated with anasarca, flu id overload and hyperkalemia. 1.The patient is on Lasix for cardiorenal syndrome with hypervolemia and the patient is on low-sodiu m diet. 2.Hypertension is in acceptable control. Monitor renal function and continue Lasix. 3.Congestive heart failure. The patient has diastolic dysfunction. He was found to have hypokalemi a and AISSATOU inhibitor was stopped. Review of Systems: The patient denies fever, chills. Physical Examination: Lungs: Clear to auscultation bilaterally. Heart: S1, S2. Abdomen: Soft, benign. Extremities: 1+ edema. Laboratory Data: Sodium 132, potassium 4.2, chloride is 105, bicarbonate 25, BUN 34, creatinine 2.3. Intact PTH is 109. Renal ultrasound showed normal kidney size. Impression And Plan: 1.Acute kidney injury secondary to cardiorenal syndrome and volume overload. Continue p.o. fluid re striction, low-sodium diet, and Lasix. Adjust Lasix dose according to fluid balance. The patient wi ll need to be screened for proteinuria pending workup. 2.Hypertension. Blood pressure is fluctuating. AISSATOU inhibitor was stopped due to acute kidney injur y and risk for hyperkalemia. 3.Hyperkalemia secondary to renal failure and AISSATOU inhibitor. The potassium level is improved. The patient will continue low- potassium diet. Monitor magnesium, potassium, and phosphorus levels. EB/MODL Voice ID: [id number] Report ID: [id number]
[2018-05-15 04:29] LABS: Potassium 3.7 mmol/L (3.5-5.1)
[2018-05-15] MEDS: INSULIN -REGULAR HUMAN 50 UNIT/0.5 ML ML SQ SCH ×3 (08:46→16:30)
[2018-05-15] MEDS: glipiZIDE 5 MG TAB PO SCH (08:47)
[2018-05-15] MEDS: METOPROLOL TAR 25 MG TAB PO SCH (08:47)
[2018-05-15] MEDS: ASPIRIN EC 81 MG TAB PO SCH (08:47)
[2018-05-15] MEDS: FUROSEMIDE 40 MG/4 ML VIAL IV SCH (08:48)
[2018-05-15] MEDS: ENOXAPARIN 100 MG/ML SYR SQ SCH (11:39)
--- NOTE | 2018-05-15 13:12 | P.PN ---
Subjective Date of Service: 05/15/18 Subjective: Improving Pt admitted for chest pain, had abnormal RFT in the past , was adviced to see a freelance writer Stress test +ve, EF 205 RFT stable Physical Examination - Vital Signs Temperature: 96.9 F Blood Pressure: 119/82 Pulse: 73 Respirations: 18 Pulse Ox (%): 99 - Physical Exam General: In no apparent distress, Oriented x3 Neck: Supple, Without JVD or thyroid abnormality Respiratory: Clear to auscultation bilaterally, Normal air movement Cardiovascular: No edema, Regular rate/rhythm, Normal S1 S2, No rubs, No murmurs Gastrointestinal: Normal bowel sounds, Soft and benign Assessment And Plan - Current Problems (Diagnosis) (1) CKD (chronic kidney disease) Current Visit: Yes Status: Chronic (2) Chest pain Onset Date: 05/14/18 Current Visit: Yes Status: Acute - Plan Assessment And Plan: Acute kidney injury vs CKD unknwon baseline Cr was informed in the past that he need to see a kidney specialist UOC 1.3, Ua no bld Hypertension, controlled CHF EF 20% stress test : large defect in inferior apicl and septal lt myocardium if plan for cardiac cath then pt is moderate to high risk for contrast induce nephropathy cardiology plan for now is medical treatment
[2018-05-15 16:24] VITALS: BP 133/89; TEMP 97.2
[2018-05-15 17:16] VITALS: O2SAT 98
--- NOTE | 2018-05-18 09:50 | CON ---
Date of Consultation: 05/12/2018 History Of Present Illness: Elevated BUN and creatinine, fluid management, hyperkalemia, hypertensio n. History Of Present Illness: This is a pleasant 58-year-old gentleman with significant past medical h istory of hypertension, hyperlipidemia, diabetes complicated with neuropathy. Apparently, the patien t had chronic kidney disease. According to him, he was seen by his primary care, and he was referred for an elevation in BUN and creatinine to Nephrology . The patient came to the [facility] of chest pain and chest tightness with nausea and vomiting on times, found to have EKG rene nges, elevated BUN and creatinine with hyperkalemia. For that reason, we have been consulted. The p atient denied taking any nonsteroidal. No IV contrast. No recent change in his medication. The pat iegeorgina was treated over the night. I gave him treatment for D50 with insulin and hydration. The patie nt still complaining of chest tightness. Past Medical History: Includes: 1.Hypertension. 2.Hyperlipidemia. 3.Diabetes complicated with neuropathy. Past Surgical History: Negative. Allergies: NO KNOWN DRUG ALLERGIES. Home Medications: Include lisinopril, hydrochlorothiazide, glipizide, metformin, and pravastatin. Social History: Denies smoking. Denies drinking. Denies drug abuse. Family History: Positive for diabetes. Review of Systems: Head and Neck: No red eye. No ear pain. GI: No nausea, no vomiting. : No polyuria, no dysuria, no hematuria. Fretted Instrument Repairer: Not applicable. Respiratory: Has shortness of breath. Cardiovascular: Has chest pain. Endocrine: No polydipsia. Skin: No rash. Neuro: Has neuropathy. Musculoskeletal: No low back pain. Physical Examination: Vital Signs: When I saw the patient, blood pressure 119/84, pulse of 65, afebrile. Chest: Clear to auscultation. Heart: S1, S2 regular. Abdomen: Soft, nontender. Extremities: Trace edema. Neuro: Alert and oriented x3. Laboratory Data: WBC 7.5, H and H 14.2/42.6, platelets 201. Sodium 142, potassium 4.2, bicarb 25, B UN 34, creatinine 2.3, GFR 29, calcium 7.6. Assessment And Plan: Acute kidney injury on chronic kidney disease, possible chronic given the histo ry as he mentioned with his primary care with component of cardiorenal complicated with hyperkalemia. 1.I can start the patient on gentle hydration, and we will monitor the patient. 2.I will send for renal ultrasound, protein, creatinine, CK, and uric acid, and we will follow up th e patient. 3.Hypertension, controlled, optimal, in the presence of acute kidney injury and hyperkalemia. Disco ntinue lisinopril and hydrochlorothiazide. We will monitor the patient. 4.Chest pain as by primary. SERGEY/RANJEET Voice ID: [id number] Report ID: [id number]
--- NOTE | 2018-05-20 13:28 | P.DS ---
Admission Date: 05/13/18 Discharge Date: 05/15/18 Disposition: ROUTINE DISCHARGE Discharge Condition: GOOD Reason for Admission: Chest pain, ACS Consultations: Cardiology, Dr. Giron Nephrology, Dr. Fajardo Procedures: Cardiac Stress test Brief History of Present Illness: The patient is a 58-year-old male with past medical history of hypertension, hyperlipidemia, diabetes mellitus [id number]-mchnkdbcr, who was in his usual state of health until day prior to admission when the patient went to a restaurant, had several glasses of whiskey, he says about 5 and the next morning woke up with chest pain. The patient also reported some associated shortness of breath and nausea and vomiting x1. Denies any diaphoresis or palpitations. The patient denies being a daily drinker. States that his pain has improved since being in the ER. The pain was retrosternal, nonradiating, sharp. The patient's symptoms were constant, mild, progressive. The patient came into the ER for further evaluation. Upon arrival, his workup revealed a troponin of 0.3. BNP was 6500. His kidney function was elevated at 2.48. Potassium was high at 5.3. White count was normal. Chest x-ray was not clear. It showed diffusely prominent markings with baseline unknown, mild cardiac enlargement, vascular engorgement, some significant degree of underlying fibrotic lung change. CHF, volume overload or pulmonary edema from the infiltrates are all possible. The patient's EKGs did not show any acute ST elevation. The patient was hypoxic and was started on 2 L nasal cannula. His septic workup was negative. Procalcitonin and lactate were normal. The patient was then referred for admission. When seen in the ER the patient was awake, alert, oriented x3, in some mild distress. Hospital Course: Patient was admitted for acute kidney injury on chronic kidney disease. She was started on IV fluids with gentle hydration because of the congestive heart failure history and her volume overload on the chest x-ray. Initially she did have an elevated troponin level without any EKG changes for ST-elevation. Cardiology was consulted and she was started on 1 make acute global Lovenox. She is started on chest pain diet lines with beta-romario, statin and aspirin. Her AISSATOU-inhibitor was held due to her acute kidney injury. For hyperkalemia, she was given Kayexalate. Nephrology was consulted from the emergency room for her kidney injury. Initially, she was also volume overloaded with BNP of 6500 and chest x-ray with evidence of volume overload. From cardiology point of view, her stress test was positive, the cardiology did not want to do a cardiac catheterization because of her creatinine/kidney disease. Per cardiology, medical management was continued, lifestyle optimization was discussed with patient and she was instructed to follow up outpatient with Cardiology for further outpatient testing. Her creatinine did improve throughout the stay, she was instructed to follow up with nephrology as an outpatient. Prior to discharge, patient's symptoms and vastly improved, she was hemodynamically stable, alert oriented x3 and in no acute distress. Medication management was extensively discussed with patient as was lifestyle modification/optimization. She was discharged on aspirin 81, Lasix 40 mg daily, metoprolol 12 0.5 mg b.i.d. , amlodipine, glipizide, metformin and pravastatin. Vital Signs/Physical Exam: Temp Pulse Resp BP Pulse Ox 97.2 F 85 18 133/89 98 05/15/18 16:00 05/15/18 16:00 05/15/18 16:00 05/15/18 16:00 05/15/18 16:00 General: Alert, In no apparent distress, Oriented x3 HEENT: Atraumatic, PERRLA, EOMI Neck: Supple, JVD not distended Respiratory: Clear to auscultation bilaterally, Normal air movement Cardiovascular: Regular rate/rhythm, Normal S1 S2 Gastrointestinal: Normal bowel sounds, No tenderness Musculoskeletal: No tenderness Integumentary: No rashes Neurological: Normal speech, Normal tone, Normal affect Lymphatics: No axilla or inguinal lymphadenopathy Laboratory Data at Discharge: WBC 7.5 K/uL (4.3-10.9) 05/13/18 06:29 Hgb 13.1 g/dL (13.6-17.9) L 05/13/18 06:29 Hct 38.0 % (39.6-49.0) L 05/13/18 06:29 Plt Count 180 K/uL (152-406) 05/13/18 06:29 PT 12.7 SECONDS (9.5-12.5) H 05/12/18 10:30 INR 1.08 05/12/18 10:30 Sodium 142 mmol/L (136-145) 05/15/18 04:00 Potassium 3.7 mmol/L (3.5-5.1) 05/15/18 04:00 BUN 35 mg/dL (7-18) H 05/15/18 04:00 Creatinine 2.27 mg/dL (0.55-1.3) H 05/15/18 04:00 Glucose 199 mg/dL (74-106) H 05/15/18 04:00 Uric Acid 6.9 mg/dL (3.5-7.2) 05/12/18 18:30 Magnesium 2.3 mg/dL (1.8-2.4) 05/12/18 10:30 Total Bilirubin 0.5 mg/dL (0.2-1.0) 05/12/18 10:30 AST 17 U/L (15-37) 05/12/18 10:30 ALT 39 U/L (12-78) 05/12/18 10:30 Alkaline Phosphatase 96 U/L (45-117) 05/12/18 10:30 Troponin I 0.34 ng/mL (0.0-0.045) H 05/12/18 20:52 Triglycerides 195 mg/dL (<150) H 05/13/18 06:29 Cholesterol 135 mg/dL (<200) 05/13/18 06:29 HDL Cholesterol 34 mg/dL (40-60) L 05/13/18 06:29 Cholesterol/HDL Ratio 3.97 05/13/18 06:29 Home Medications: Amlodipine [Norvasc*] 10 mg PO DAILY 05/12/18 Glipizide [Glucotrol] 10 mg PO DAILY WITH BREAKFAST 05/12/18 Metformin HCl [Glucophage*] 850 mg PO TIDWM 05/12/18 Pravastatin Sodium 20 mg PO BEDTIME 05/13/18 Aspirin [Aspirin EC 81 MG] 81 mg PO DAILY #30 tablet. 05/15/18 Furosemide [Lasix] 40 mg PO DAILY #15 tablet 05/15/18 Metoprolol Tartrate 25 mg PO DAILY #30 tablet 05/15/18 Nitroglycerin [Nitrostat*] 0.4 mg SL UD PRN #15 tab 05/15/18 New Medications: Aspirin [Aspirin EC 81 MG] 81 mg PO DAILY #30 tablet. Furosemide [Lasix] 40 mg PO DAILY #15 tablet Metoprolol Tartrate 25 mg PO DAILY #30 tablet Nitroglycerin [Nitrostat*] 0.4 mg SL UD PRN #15 tab PRN Reason: Chest Pain Patient Discharge Instructions: Please follow up with a primary care physician in 1 week. List provided to you. Hold: Please do no take the lisinopril/Hctz medication until you see your primary care physician or case repairer. New medication: Metoprolol, Lasix, Nitroglycerin as needed and aspirin 81 mg daily. Please return to the Emergency room for worsening symptoms. Diet: AHA Activity: Ad cheikh Followup: Jericho Fajardo MD [ACTIVE - CAN ADMIT] - Jeronimo Whittington MD [ACTIVE - CAN ADMIT] - Time spent managing pt's care (in minutes): 55
== END 2018-05-15 18:00 | disposition home or self-care (01) | DRG 683 ==
LOC: ER 09:45 → ERHOLD 12:48 → 4TH 16:09 → OBSVTOIN 05-13 17:46
PROVIDERS: ADMIT Family Medicine; ATTEND Family Medicine
DX: N17.9 Acute kidney failure, unspecified (principal); E87.2 Acidosis; I13.0 Hypertensive heart and chronic kidney disease with heart failure and stage 1 through stage 4 chronic kidney disease, or unspecified chronic kidney disease; I50.32 Chronic diastolic (congestive) heart failure; E87.5 Hyperkalemia; E11.65 Type 2 diabetes mellitus with hyperglycemia; Z79.84 Long term (current) use of oral hypoglycemic drugs; E87.70 Fluid overload, unspecified; E78.2 Mixed hyperlipidemia; E66.01 Morbid (severe) obesity due to excess calories; Z68.33 Body mass index [BMI] 33.0-33.9, adult; E11.40 Type 2 diabetes mellitus with diabetic neuropathy, unspecified; I10 Essential (primary) hypertension; E11.22 Type 2 diabetes mellitus with diabetic chronic kidney disease; N18.3 Chronic kidney disease, stage 3 (moderate)
CPT/HCPCS: 36415; 71045; 76770; 78452; 80048; 80061; 80076; 81001; 82550; 82570; 82962; 83036; 83605; 83735; 83880; 83970; 84132; 84145; 84156; 84443; 84484; 84550; 85025; 85379; 85610; 87040; 90670; 93005; 93017; 93306; 94640; 94760; 96361; 96372; 96374; 99285; A9500; G0009; J1650; J1940; J2405; J2785; J7030

== ENCOUNTER 2018-12-24 03:55 | Emergency (ER) | payer SELFPAY ==
--- OUTSIDE RECORDS SUMMARY | 2018-12-24 03:57 | XMS REPORT ---
:1960 [facility] Address [address] [place] [address] Care Team Providers Name Role Phone Unavailable Unavailable Unavailable Problems This patient has no known problems. Allergies, Adverse Reactions, Alerts This patient has no known allergies or adverse reactions. Medications This patient has no known medications. Encounters Start End Encounter Admission Attending Care Care Encounter Date/Time Date/Time Type Type Clinicians Facility Department ID 2018-08-26 2018-08-26 Inpatient E [facility] MED [id number] 18:39:00 15:31:00
[2018-12-24] MEDS ORDERED: METOPROLOL TARTRATE 5 MG/5 ML INJ IV ONE (04:10)
[2018-12-24] MEDS ORDERED: ASPIRIN 81 MG CHEWABLE TABLET ONE (04:24)
[2018-12-24 04:30] LABS: Absolute Lymphocytes (CBC) 1.6 K/uL (0.7-4.9); Basophils % 0.7 % (0-1.3); Hematocrit 40.5 % (39.6-49.0); Lymphocytes % 21.9 % (15.3-44.8); MPV 10.8 fL (7.6-11.3); RBC Red Blood Cell Count 4.73 M/uL (4.33-5.43)
[2018-12-24 04:33] LABS: Protime INR 1.9
[2018-12-24 04:50] LABS: Albumin 3.2 g/dL (3.4-5.0); Bilirubin Direct 0.3 mg/dL (0-0.2); Bilirubin Total 0.9 mg/dL (0.2-1.0); Magnesium 2.3 mg/dL (1.8-2.4); Potassium 4.1 mmol/L (3.5-5.1)
[2018-12-24 04:53] LABS: Troponin (Emerg Dept Use Only) 0.85 ng/mL (0.0-0.045)
[2018-12-24] MEDS ORDERED: HEPARIN/D5W 25,000 UNIT/500 ML BAG IV ONE (05:20)
[2018-12-24] MEDS ORDERED: HEPARIN 5000 UNIT/ML 1 ML VIAL ONE (05:20)
[2018-12-24] MEDS ORDERED: MORPHINE 2 MG/ML SYR ONE (05:48)
[2018-12-24] MEDS ORDERED: ONDANSETRON 4 MG/2 ML VIAL ONE ×2 (05:48→07:36)
--- NOTE | 2018-12-24 06:52 | ER ---
Nurse's Notes [facility] Name: Jin Piña Age: 58 yrs Sex: Male : 1960 Arrival Date: 12/24/2018 Time: 03:56 Bed 3 Private MD: Diagnosis: Chest pain. Elevated Troponin. A. Fib. with RVR. Diabetes. Chronic renal disease Presentation: 12/24 04:04 Presenting complaint: Patient states: CP x 3 days. Also c/o R arm pain and swelling in aa1 R foot. Transition of care: patient was not received from another setting of care. Onset of symptoms was December 21, 2018. Risk Assessment: Do you want to hurt yourself or someone else? Patient reports no desire to harm self or others. Initial Sepsis Screen: Does the patient meet any 2 criteria? HR > 90 bpm. Does the patient have a suspected source of infection? No. Patient's initial sepsis screen is negative. Care prior to arrival: None. 04:04 Method Of Arrival: Ambulatory aa1 04:04 Acuity: SHERMAN 2 aa1 04:21 Note Patient states chest pain with shortness of breath x 3 days; States seen at [address] 2 months ago and informed of 3 clogged vessels and need for cardiac cath; Patient states surgery too expensive to have done. Triage Assessment: 04:07 General: Appears in no apparent distress. comfortable, Behavior is calm, cooperative, aa1 appropriate for age. Historical: - Allergies: 04:07 No Known Allergies; aa1 - Home Meds: 04:23 atorvastatin oral oral [Active]; Metoprolol Tartrate Oral [Active]; Glipizide Oral lp1 [Active]; Furosemide Oral [Active]; - PMHx: 04:07 Diabetes - NIDDM; High Cholesterol; Hypertension; aa1 05:24 Atrial Fib; lp1 - PSHx: 04:07 None; aa1 - Immunization history:: Adult Immunizations unknown. - Social history:: Smoking status: Patient/guardian denies using tobacco. - Ebola Screening: : No symptoms or risks identified at this time. Screenin:28 Abuse screen: Denies threats or abuse. Denies injuries from another. Nutritional lp1 screening: No deficits noted. Tuberculosis screening: No symptoms or risk factors identified. Fall Risk Total Powell Fall Scale indicates High Risk Score (45 or more points). Fall prevention measures have been instituted. Side Rails Up X 2 As available patient and family educated on Fall Prevention Program and Strategies. Assessment: 04:10 Reassessment: Dr. Beltran at bedside to assess patient; Verbal orders given for Lopressor lp1 5mg IV x3 for elevated HR. 04:15 General: Appears uncomfortable, Behavior is appropriate for age. Pain: Complains of lp1 pain in chest Pain radiates to right arm Pain currently is 7 out of 10 on a pain scale. Quality of pain is described as sharp, Pain began gradually. Neuro: Level of Consciousness is awake, alert, obeys commands, Oriented to person, place, time, situation. Cardiovascular: Capillary refill < 3 seconds in bilateral fingers toes Patient's skin is warm and dry. Edema is 1+ to left ankle, left foot, right ankle and right foot. Respiratory: Reports shortness of breath Airway is patent Respiratory effort is even, Respiratory pattern is regular, Breath sounds are clear bilaterally. GI: Abdomen is non-distended. : No signs and/or symptoms were reported regarding the genitourinary system. EENT: No signs and/or symptoms were reported regarding the EENT system. Derm: Skin is intact, Skin is dry, Skin is normal. Musculoskeletal: No deficits noted. 04:40 Reassessment: Patient is alert, oriented x 3, equal unlabored respirations, skin lp1 warm/dry/pink. Patient denies pain at this time. Patient states feeling better. 05:24 Reassessment: Patient is alert, oriented x 3, equal unlabored respirations, skin lp1 warm/dry/pink. Patient states known history of atrial fibrillation Patient denies pain at this time. Patient states symptoms have improved. 05:46 Reassessment: Patient complaint of chest pressure; Provider notified; Verbal order for lp1 Morphine 2mg IV, Zofran 4mg IV. 06:33 Reassessment: Patient and/or family updated on plan of care and expected duration. Pain jd3 level reassessed. Patient is alert, oriented x 3, equal unlabored respirations, skin warm/dry/pink. Patient states feeling better. 07:12 Reassessment: Report given to KENDRICK Gagnon for patient transfer to [facility] lp1 [place] 8B Rm [id number]. 07:42 Reassessment: Patient is alert/active/playful, equal unlabored respirations, skin hj warm/dry/pink. pt vomited x 1 with light pink colored vomitus, requested from provider Davonte order; medicated; heparin drip stopped; MD aware; . Vital Signs: 04:07 BP 111 / 95; Pulse 152; Resp 18; Temp 97.4; Pulse Ox 100% on R/A; Weight 78.02 kg; aa1 Height 5 ft. 8 in. (172.72 cm); Pain 6/10; 04:16 BP 107 / 84; Pulse 145; Resp 17; Pulse Ox 99% on R/A; lp1 04:18 BP 106 / 90; Pulse 143; Resp 20; Pulse Ox 99% on R/A; lp1 04:29 BP 103 / 85; Pulse 122; Resp 22; Pulse Ox 99% on 2 lpm NC; lp1 04:39 BP 103 / 89; Pulse 121; Resp 19; Pulse Ox 98% on 2 lpm NC; lp1 04:45 BP 103 / 91; Pulse 132; Resp 20; Pulse Ox 97% on 2 lpm NC; lp1 05:05 Weight 84.1 kg (M); lp1 05:10 BP 109 / 81; Pulse 123; Resp 20; Pulse Ox 99% on R/A; Pain 1/10; lp1 05:54 BP 97 / 76; Pulse 123; Resp 19; Pulse Ox 100% on R/A; lp1 06:32 BP 96 / 83; Pulse 127; Resp 20 S; Pulse Ox 98% on 2 lpm NC; jd3 05:05 Body Mass Index 28.19 (84.10 kg, 172.72 cm) lp1 ED Course: 03:56 Patient arrived in ED. ds1 04:02 Simba Beltran MD is Attending Physician. pkl 04:05 Inserted saline lock: 18 gauge in right forearm, using aseptic technique. Blood lp1 collected. 04:05 Patient maintains SpO2 saturation greater than 95% on room air. lp1 04:06 Triage completed. aa1 04:07 Arm band placed on right wrist. aa1 04:15 Yesi Summers, KENDRICK is Primary Nurse. lp1 04:28 XRAY Chest (1 view) In Process Unspecified. EDMS 04:28 Patient has correct armband on for positive identification. Placed in gown. Bed in low lp1 position. turbo electric operator on. Pulse ox on. NIBP on. 04:45 Warm blanket given. jd3 04:51 Notified ED physician of a critical lab result(s). Troponin of 0.85. jd3 04:52 EKG done, by ED staff, reviewed by Simba Beltran MD. jd3 Administered Medications: 04:15 Drug: Lopressor 5 mg Route: IVP; Site: right forearm; lp1 04:20 Drug: Lopressor 5 mg Route: IVP; Site: right forearm; lp1 04:25 Drug: Lopressor 5 mg Route: IVP; Site: right forearm; lp1 04:49 Follow up: Response: No change in condition lp1 04:31 Drug: Aspirin 162 mg Route: PO; jd3 05:24 Follow up: Response: No adverse reaction jd3 05:25 Drug: Heparin ([place] Drip) 12 units/kg/hr - (HEParin 98860 units, D5W 500 ml) lp1 {Co-Signature: ana m (Frankie Gutierrez RN).} Route: IV; Rate: calculated rate; Site: right forearm; 05:25 Drug: Heparin ([place]-Bolus No thrombolytic) - HEParin 60 units/kg {Co-Signature: ana m lp1 (Frankie Gutierrez RN).} Route: IVP; Site: right forearm; 05:48 Follow up: Response: No adverse reaction lp1 05:53 Drug: morphine 2 mg {Note: RASS 0.} Route: IVP; Site: right forearm; lp1 07:37 Follow up: Response: No adverse reaction hj 05:53 Drug: Zofran 4 mg Route: IVP; Site: right forearm; lp1 07:37 Follow up: Response: No adverse reaction hj 07:37 Drug: Zofran 4 mg Route: IVP; Site: right forearm; hj 07:38 Follow up: Response: No adverse reaction hj 07:50 Drug: ProTONIX 40 mg Route: IVP; Site: right forearm; hj 07:55 Follow up: Response: No adverse reaction hj Outcome: 06:50 ER care complete, transfer ordered by . pkl 08:06 Patient left the ED. hj Signatures: Dispatcher [employer] EDYesenia Dupree RN RN aa1 Simba Beltran MD MD pkl Sanford, Demi ds1 Yesi Summers RN RN lp1 Saleem Sims RN RN Frankie Washington RN RN jd3 Frankie Gutierrez RN jd3 Corrections: (The following items were deleted from the chart) 05:34 05:33 Warm blanket given. jd3 jd3 05:53 05:53 morphine 2 mg IVP in right forearm [place] [id number] 07:14 07:12 Reassessment: Report given to KENDRICK Gagnon for patient transfer to [facility] lp1
--- NOTE | 2018-12-24 06:52 | EDPHYS ---
Physician Documentation [facility] Name: Jin Piña Age: 58 yrs Sex: Male : 1960 Arrival Date: 12/24/2018 Time: 03:56 Bed 3 Private MD: ED Physician Simba Beltran HPI: 12/24 04:26 This 58 yrs old Male presents to ER via Ambulatory with complaints of Chest pkl Pain, Arm Pain. 04:26 The patient or guardian reports chest pain that is located primarily in the substernal pkl area. Onset: 3 day(s) ago. The pain radiates to the right arm. Associated signs and symptoms: Pertinent positives: palpitations, shortness of breath. The chest pain is described as a pressure. Patient was admitted to [facility] for 1 week about 2 months ago. Told he had 3 vessels occlusions in his heart.. Historical: - Allergies: 04:07 No Known Allergies; aa1 - Home Meds: 04:23 atorvastatin oral oral [Active]; Metoprolol Tartrate Oral [Active]; Glipizide Oral lp1 [Active]; Furosemide Oral [Active]; - PMHx: 04:07 Diabetes - NIDDM; High Cholesterol; Hypertension; aa1 05:24 Atrial Fib; lp1 - PSHx: 04:07 None; aa1 - Immunization history:: Adult Immunizations unknown. - Social history:: Smoking status: Patient/guardian denies using tobacco. - Ebola Screening: : No symptoms or risks identified at this time. ROS: 04:26 Eyes: Negative for injury, pain, redness, and discharge, ENT: Negative for injury, pkl pain, and discharge, Neck: Negative for injury, pain, and swelling. 04:26 Cardiovascular: Positive for chest pain, palpitations. 04:26 Respiratory: Positive for shortness of breath, at rest. 04:26 Abdomen/GI: Negative for abdominal pain, nausea, vomiting, and diarrhea. 04:26 Back: Negative for acute changes. 04:26 : Negative for urinary symptoms. 04:26 MS/extremity: Positive for swelling, of the both legs. 04:26 Skin: Negative for rash. 04:26 Neuro: Negative for altered mental status, loss of consciousness. Exam: 04:26 Head/Face: Normocephalic, atraumatic. Eyes: Pupils equal round and reactive to light, pkl extra-ocular motions intact. Lids and lashes normal. Conjunctiva and sclera are non-icteric and not injected. Cornea within normal limits. Periorbital areas with no swelling, redness, or edema. ENT: Nares patent. No nasal discharge, no septal abnormalities noted. Tympanic membranes are normal and external auditory canals are clear. Oropharynx with no redness, swelling, or masses, exudates, or evidence of obstruction, uvula midline. Mucous membranes moist. Neck: Trachea midline, no thyromegaly or masses palpated, and no cervical lymphadenopathy. Supple, full range of motion without nuchal rigidity, or vertebral point tenderness. No Meningismus. Chest/axilla: Normal chest wall appearance and motion. Nontender with no deformity. No lesions are appreciated. 04:26 Cardiovascular: Rate: tachycardic, actual rate is 152 bpm, Rhythm: regular, Edema: 2+ edema to level of both legs. 04:26 ECG was reviewed by the Attending Physician. 04:26 Respiratory: the patient does not display signs of respiratory distress, Respirations: normal, Breath sounds: rales, that are mild, are scattered. 04:26 Abdomen/GI: Bowel sounds: normal, Palpation: abdomen is soft and non-tender, in all quadrants. 04:26 Back: Exam negative for acute changes. 04:26 : Exam negative for acute changes. 04:26 Musculoskeletal/extremity: Extremities: grossly normal except: noted in the both legs: swelling. 04:26 Skin: Exam negative for diaphoresis, rash. 04:26 Neuro: Orientation: is normal, Mentation: is normal, Cranial nerves: grossly normal, Motor: is normal. Vital Signs: 04:07 BP 111 / 95; Pulse 152; Resp 18; Temp 97.4; Pulse Ox 100% on R/A; Weight 78.02 kg; aa1 Height 5 ft. 8 in. (172.72 cm); Pain 6/10; 04:16 BP 107 / 84; Pulse 145; Resp 17; Pulse Ox 99% on R/A; lp1 04:18 BP 106 / 90; Pulse 143; Resp 20; Pulse Ox 99% on R/A; lp1 04:29 BP 103 / 85; Pulse 122; Resp 22; Pulse Ox 99% on 2 lpm NC; lp1 04:39 BP 103 / 89; Pulse 121; Resp 19; Pulse Ox 98% on 2 lpm NC; lp1 04:45 BP 103 / 91; Pulse 132; Resp 20; Pulse Ox 97% on 2 lpm NC; lp1 05:05 Weight 84.1 kg (M); lp1 05:10 BP 109 / 81; Pulse 123; Resp 20; Pulse Ox 99% on R/A; Pain 1/10; lp1 05:54 BP 97 / 76; Pulse 123; Resp 19; Pulse Ox 100% on R/A; lp1 06:32 BP 96 / 83; Pulse 127; Resp 20 S; Pulse Ox 98% on 2 lpm NC; jd3 05:05 Body Mass Index 28.19 (84.10 kg, 172.72 cm) lp1 MDM: 04:02 Patient medically screened. pkl 04:37 Data reviewed: vital signs, nurses notes, lab test result(s), EKG, radiologic studies, pkl plain films. 06:46 ED course: Talked to Dr. Deshpande, transfer to [facility]. pkl 12/24 04:15 Order name: Basic Metabolic Panel; Complete Time: 05:37 lp1 12/24 04:15 Order name: CBC with Diff; Complete Time: 04:45 lp1 12/24 04:15 Order name: LFT's; Complete Time: 05:37 lp1 12/24 04:15 Order name: Magnesium; Complete Time: 05:37 lp1 12/24 04:15 Order name: NT PRO-BNP; Complete Time: 05:37 lp1 12/24 04:15 Order name: PT-INR; Complete Time: 04:45 lp1 12/24 04:15 Order name: Troponin (emerg Dept Use Only); Complete Time: 05:37 lp1 12/24 04:15 Order name: XRAY Chest (1 view) lp1 12/24 05:29 Order name: Ptt, Activated; Complete Time: 06:08 lp1 12/24 04:15 Order name: EKG; Complete Time: 04:16 lp1 12/24 04:15 Order name: Cardiac monitoring; Complete Time: 04:20 lp1 12/24 04:15 Order name: EKG - Nurse/Tech; Complete Time: 04:20 lp1 12/24 04:15 Order name: IV Saline Lock; Complete Time: 04:21 lp1 12/24 04:15 Order name: Labs collected and sent; Complete Time: 04:21 lp1 12/24 04:15 Order name: O2 Per Protocol; Complete Time: 04:20 lp1 12/24 04:15 Order name: O2 Sat Monitoring; Complete Time: 04:20 lp1 Administered Medications: 04:15 Drug: Lopressor 5 mg Route: IVP; Site: right forearm; lp1 04:20 Drug: Lopressor 5 mg Route: IVP; Site: right forearm; lp1 04:25 Drug: Lopressor 5 mg Route: IVP; Site: right forearm; lp1 04:49 Follow up: Response: No change in condition lp1 04:31 Drug: Aspirin 162 mg Route: PO; jd3 05:24 Follow up: Response: No adverse reaction jd3 05:25 Drug: Heparin ([place] Drip) 12 units/kg/hr - (HEParin 06602 units, D5W 500 ml) lp1 {Co-Signature: jbrian (Frankie Gutierrez RN).} Route: IV; Rate: calculated rate; Site: right forearm; 05:25 Drug: Heparin ([place]-Bolus No thrombolytic) - HEParin 60 units/kg {Co-Signature: jbrian lp1 (Frankie Gutierrez RN).} Route: IVP; Site: right forearm; 05:48 Follow up: Response: No adverse reaction lp1 05:53 Drug: morphine 2 mg {Note: RASS 0.} Route: IVP; Site: right forearm; lp1 07:37 Follow up: Response: No adverse reaction hj 05:53 Drug: Zofran 4 mg Route: IVP; Site: right forearm; lp1 07:37 Follow up: Response: No adverse reaction hj 07:37 Drug: Zofran 4 mg Route: IVP; Site: right forearm; hj 07:38 Follow up: Response: No adverse reaction hj 07:50 Drug: ProTONIX 40 mg Route: IVP; Site: right forearm; hj 07:55 Follow up: Response: No adverse reaction hj Disposition: 12/24/18 06:50 Transfer ordered to [facility]. Diagnosis is Chest pain. Elevated Troponin. A. Fib. with RVR. Diabetes. Chronic renal disease. - Reason for transfer: Higher level of care. - Accepting physician is Dr. Deshpande. - Condition is Stable. - Problem is new. - Symptoms have improved. Signatures: Dispatcher [employer] Yesenia Muñoz, RN RN aa1 Palmer Griffin MD MD cha Lam, Pin, MD MD pkl Pena, Laura, RN RN lp1 Saleem Sims, RN RN hj Frankie Gutierrez RN RN jd3 Frankie Gutierrez RN jd3 Corrections: (The following items were deleted from the chart) 08:06 06:50 12/24/2018 06:50 Transfer ordered to [facility]. Diagnosis is Chest pain. hj Elevated Troponin. A. Fib. with RVR. Diabetes. Chronic renal disease. Reason for transfer: Higher level of care. Accepting physician is Dr. Deshpande. Condition is Stable. Problem is new. Symptoms have improved. pkl
--- NOTE | 2018-12-24 07:45 | EKG ---
Test Date: 2018-12-24 Test Time: 04:04:49 Security Site Supervisor: LATIA MEASUREMENT RESULTS: Intervals: Rate: 149 HI: 72 QRSD: 116 QT: 350 QTc: 551 [place]: P: 110 HI: 72 QRS: 229 T: 66 INTERPRETIVE STATEMENTS: Atrial flutter with 2:1 AV block Pulmonary disease pattern Right bundle branch block T wave abnormality, consider inferior ischemia Abnormal ECG Compared to ECG 05/12/2018 19:53:40 no significant change from previous ECG Electronically Signed On 12-24-18 07:44:44 CDT by Lio Giron
[2018-12-24] MEDS ORDERED: PANTOPRAZOLE 40 MG INJ ONE (07:53)
[2018-12-24 08:19] VITALS: TEMP 97.4
--- NOTE | 2018-12-24 08:27 | RAD REPORT ---
EXAM DESCRIPTION: RAD - Chest Single View - 12/24/2018 4:28 am CLINICAL HISTORY: CHEST PAIN Chest pain. COMPARISON: Chest Single View dated 05/12/2018 FINDINGS: Portable technique limits examination quality. Mild interstitial pulmonary edema is seen throughout the lungs. Fullness is present in the right hilu m which may be related to vasculature but lymphadenopathy or mass is also a possibility. The heart is mildly enlarged in size.CT chest followup would be advised for further assessment of the right hilar region.
[2018-12-24 08:30] VITALS: BP 96/83; O2SAT 98
--- NOTE | 2018-12-25 11:24 | EKG ---
Test Date: 2018-12-24 Test Time: 04:50:22 Bottom Hoop Driver: STUART MEASUREMENT RESULTS: Intervals: Rate: 118 NE: QRSD: 122 QT: 410 QTc: 574 [place]: P: NE: QRS: 196 T: 53 INTERPRETIVE STATEMENTS: Atrial flutter with variable AV block with premature ventricular or aberrantly conducted complexes Right bundle branch block Anterior infarct, age undetermined Abnormal ECG Compared to ECG 12/24/2018 04:04:49 Ventricular premature complex(es) now present Myocardial infarct finding now present 2:1 AV block no longer present T-wave abnormality no longer present Possible ischemia no longer present Electronically Signed On 12-25-18 11:19:48 CDT by Jeronimo Whittington
== END 2018-12-24 08:06 | disposition short-term general hospital (02) ==
LOC: ER 03:55
DX: I48.2 Chronic atrial fibrillation (principal); R79.89 Other specified abnormal findings of blood chemistry; I12.9 Hypertensive chronic kidney disease with stage 1 through stage 4 chronic kidney disease, or unspecified chronic kidney disease; E11.22 Type 2 diabetes mellitus with diabetic chronic kidney disease; N18.9 Chronic kidney disease, unspecified; E78.00 Pure hypercholesterolemia, unspecified
CPT/HCPCS: 36415; 71045; 80048; 80076; 83735; 83880; 84484; 85025; 85610; 85730; 93005; 96374; 96375; 99285; C9113; J1644; J2270; J2405